=== PATIENT | male | born 1975 | race Caucasian/White ===

== ENCOUNTER 2016-10-27 06:13 | Emergency (ER) | payer OTHER ==
[~2016-10-27] VITALS: Ht 182.9 cm; Wt 116.3 kg
[~2016-10-27 06:13] MED LIST: ALPRAZOLAM0.5 MG PO; AMITRIPTYLINE H25 MG PO; BENTYL20 MG PO; BUSPAR10 MG PO; CIPRO500 MG PO; DEPAKOTE ER (E500 MG PO; DEPAKOTE500 MG PO; FLAGYL500 MG PO; GLIMEPIRIDE4 MG PO; INDERAL LA60 MG PO; LORTAB 5-325 M1 EACH PO; METFORMIN HCL500 MG PO; NAPROSYN-EC500 MG PO; PERCOCET 5-3251 EACH PO; PERCOCET 5/31 TABLET PO; PROTONIX40 MG PO; ZESTRIL40 MG PO; ZOCOR20 MG PO
[2016-10-27 06:52] LABS: INFLUENZA A VIRAL ANTIGEN NEGATIVE; INFLUENZA B VIRAL ANTIGEN NEGATIVE
[2016-10-27 07:43] LABS: EOSINOPHIL (%) 0.5 % (0-5); EOSINOPHIL COUNT 0.1 K/uL (0-0.3); HEMATOCRIT 43.7 % (38.0-50.0); IMMATURE GRANULOCYTE (%) 0.3 % (0.0-0.7); IMMATURE GRANULOCYTE COUNT 0.4 K/uL; LYMPHOCYTE COUNT 0.5 K/uL (1.0-2.8); MCH 30.3 PG (29.0-34.0); MCHC 34.8 G/DL (30.0-36.0); MCV 87.2 FL (86-99); MEAN PLAT.VOLUME 9.6 uM^3 (9.0-12.4); MONOCYTE (%) 5.2 % (3-12); MONOCYTE COUNT 0.6 K/uL (0-0.8); NEUTROPHIL (%) 89.7 % (45-76); NEUTROPHIL COUNT 10.7 K/uL (1.8-6.4); PLATELET COUNT 196 K/uL (156-360); RBC DIS.WIDTH-CV 13.2 % (11.8-14.6); RBC DIS.WIDTH-SD 40.9 % (39-53); RED BLOOD COUNT 5.01 M/uL (4.00-5.50)
[2016-10-27 08:01] LABS: CHLORIDE 109 mEq/L (99-109); POTASSIUM 4.6 mEq/L (3.7-5.4); SODIUM 142 mEq/L (136-147)
[2016-10-27 08:03] LABS: GLUCOSE 239 mg/dL (70-99)
[2016-10-27 08:05] LABS: ANION GAP 8 MEQ/L (2-14)
[2016-10-27 08:07] LABS: GFR ESTIMATE (CALCULATED) > 59 mL/min/
[2016-10-27 08:08] LABS: UREA NITROGEN (BUN) 16 mg/dL (9-23)
[2016-10-27] MEDS ORDERED: ZOFRAN ODT4 MG PO (12:10)
[2016-10-27] MEDS ORDERED: IMODIUM MS REL1 EACH PO (12:10)
[2016-10-27 12:18] VITALS: BP 138/80
== END 2016-10-27 12:20 | disposition home or self-care (01) ==
LOC: EME 06:13
PROVIDERS: Emergency Medicine
DX: B34.9 Viral infection, unspecified (principal); K52.9 Noninfective gastroenteritis and colitis, unspecified; E11.9 Type 2 diabetes mellitus without complications
CPT/HCPCS: 80048; 85025; 87502; 99281; 99284; J1885; J2405; J7030

== ENCOUNTER 2018-01-27 04:40 | Emergency (ER) | payer OTHER ==
[~2018-01-27] VITALS: Ht 182.9 cm; Wt 118.7 kg
[~2018-01-27 04:40] MED LIST changes: +IMODIUM MS REL1 EACH PO; +ZOFRAN ODT4 MG PO
[2018-01-27] MEDS ORDERED: AUGMENTIN875 MG PO (06:51)
[2018-01-27 07:01] VITALS: BP 138/82
== END 2018-01-27 07:02 | disposition home or self-care (01) ==
LOC: EME 04:40
DX: J02.8 Acute pharyngitis due to other specified organisms (principal); E11.9 Type 2 diabetes mellitus without complications; J45.909 Unspecified asthma, uncomplicated; G43.909 Migraine, unspecified, not intractable, without status migrainosus; Z79.84 Long term (current) use of oral hypoglycemic drugs
CPT/HCPCS: 71046; 87651 90; 99281; 99284